=== PATIENT | male | born 1990 | race Caucasian/White ===

== ENCOUNTER 2019-04-07 21:59 | Emergency (ER) | payer SELFPAY ==
[2019-04-07 21:59] VITALS: BP 122/73; PULSE 108; RESP 14; TEMP 36.4; O2SAT 99; BMI 18.6
--- NOTE | 2019-04-07 22:02 | RAD_ITS ---
STUDY: X-RAY - RIGHT FOOT CLINICAL: Male, 28 years old. Pain, fall TECHNIQUE: 3 view(s) of the foot. COMPARISON: None. FINDINGS: Normal talus, calcaneus, and tarsal bones. Normal visualized subtalar, talonavicular, calcaneocuboid, tarsal and tarsometatarsal articulations. Normal metatarsi. Normal metatarsophalangeal joint of the great toe. Normal tibial and fibular sesamoid bones. Normal interphalangeal joint of the great toe. Normal phalanges of the great toe. Normal second through fifth metatarsophalangeal joints. Normal interphalangeal joints and phalanges of the lesser toes. The soft tissue structures are unremarkable. RAD/Foot min 3 Views IMPRESSION: Normal x-ray examination of the foot. Electronically Signed: Roland Handy DO at 22:23 EDT Tel [phone], Service support ,
--- NOTE | 2019-04-07 22:05 | RAD_ITS ---
STUDY: X-RAY - RIGHT ANKLE REASON FOR EXAM: Male, 28 years old. Fall TECHNIQUE: 3 view(s) of the ankle. COMPARISON: None. FINDINGS: Normal visualized distal fibula. 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 Normal medial and lateral malleoli. Normal tibiotalar articulation and ankle mortise. Normal visualized talus and calcaneus. The visualized subtalar, talonavicular, calcaneocuboid and tarsal articulations are normal. The soft tissue structures are unremarkable. RAD/Ankle min 3 Views IMPRESSION: No acute bony injury of the ankle. Electronically Signed: Roland Handy DO at 22:56 EDT Tel [phone], Service support ,
--- NOTE | 2019-04-07 23:02 | ED.DCSUM_ITS ---
- ER Visit Summary Date of Service: 04/07/19 Chief Complaint: Ankle injury History of Present Illness: The patient is a 28 M who states that a couple days ago he slipped going down the stairs in the middle the night on his way to the bathroom. He is unsure the exact mechanics of how he injured the right ankle but notes it is been painful to bear weight since. He denies any other injuries. He states there was some bruising but that has resolved Physical Examination: Afebrile vital signs stable Gen: Well-nourished well-developed Head: Normocephalic atraumatic Eyes: Perrl EOMI ENT: TMs clear no rhinorrhea moist mucous membranes Neck: Supple no lymphadenopathy no JVD nontender CVS: Regular rate rhythm no murmurs normal S1-S2 Respiratory: No distress clear to auscultation bilaterally chest nontender Abdomen: Soft nontender nondistended normal bowel sounds no masses Back: Nontender Extremity: Tenderness over the lateral malleolus on the right no fifth metatarsal pain. No fibular head pain. No tibial shaft pain. Negative Conteh's no edema Skin: Normal color no rash Neuro: alert orientated ?3 CN II-XII intact normal strength sensation Psych: Normal affect normal mood Test Results: Foot and ankle films were negative for fracture Emergency Department Course and Treatment: Axel wrap will be applied. Patient will follow-up 10 to 14 days if not improving return if worsening or concerns Impression: 1. Right ankle sprain This note was generated with Prompt[employer] dictation software. It may contain incorrect words, spelling, and punctuation that were not noted in review of the chart prior to signing ED Disposition - Plan for ED Patient: Disposition: Home or Assisted Living Instructions: Sprain, Ankle, with X-Ray Referrals: Kenny Hawthorne MD [STAFF PHYSICIAN] - 10-14 Days if not better
== END 2019-04-07 23:15 | disposition home or self-care (01) ==
LOC: ED 23:11
PROVIDERS: Emergency Provider Emergency Medicine
DX: S93.401A Sprain of unspecified ligament of right ankle, initial encounter (principal); W10.9XXA Fall (on) (from) unspecified stairs and steps, initial encounter; Y93.9 Activity, unspecified; Y92.9 Unspecified place or not applicable; Y99.9 Unspecified external cause status; Z72.0 Tobacco use; Z85.72 Personal history of non-Hodgkin lymphomas
CPT/HCPCS: 73610; 73630; 99282